=== PATIENT | male | born 1945 | race Caucasian/White ===

== ENCOUNTER 2020-01-11 08:38 | Day surgery (SDC) | payer OTHER, BC ==
[2020-01-08 14:20] VITALS: BMI 25.1
[2020-01-11] MEDS ORDERED: MIDAZOLAM HCL 2 MG/2 ML SINGLE DOSE VIAL ONE (11:29)
[2020-01-11] MEDS ORDERED: PROPOFOL 20 ML ONE (11:57)
[2020-01-11] MEDS ORDERED: ONDANSETRON 4 MG/2 ML VIAL ONE (12:11)
[2020-01-11] MEDS ORDERED: LIDOCAINE HCL/PF 2% SDV 5ML VIAL ONE (12:11)
[2020-01-11] MEDS ORDERED: ceFAZolin SODIUM 1 GM VIAL ONE (12:11)
[2020-01-11] MEDS ORDERED: BUPIVACAINE HCL/PF 2.5 MG/ML - 30 ML VIAL IJ ONE (12:46)
[2020-01-11 13:30] VITALS: TEMP 97.5
[2020-01-11] MEDS ORDERED: oxyCODONE HCL 5 MG TABLET PO PRN ×2 (14:15)
[2020-01-11] MEDS ORDERED: PROMETHAZINE HCL 25 MG/1 ML VIAL IVPB PRN (14:15)
[2020-01-11] MEDS ORDERED: ONDANSETRON 4 MG/2 ML VIAL IVPUSH PRN (14:15)
[2020-01-11] MEDS ORDERED: oxyCODONE HCL 5 MG TABLET ONE (14:17)
--- NOTE | 2020-01-11 15:26 | OP ---
DATE OF OPERATION: 01/11/2020 SURGEON: Ramon Vega MD CENTRAL PROCESSING TECHNICIAN: LOWELL Jorgensen PREOPERATIVE DIAGNOSIS: Left triceps tear. POSTOPERATIVE DIAGNOSIS: Left triceps tear. PROCEDURE: Repair of left triceps tendon distal rupture. FINDINGS: 1. Avulsed biceps tendon. 2. Gouty arthropathy. 3. Thickened scar tissue. PROCEDURE: Informed consent was obtained. After the left upper extremity was prepped and draped in sterile fashion, tourniquet was placed on the upper arm and inflated to 250 mmHg. Incision was made from the olecranon 8 cm proximal. The triceps avulsed tendon was identified, scar tissue removed from the distal portion. There were multiple areas of gouty crystals and tophi which were debrided. Careful attention was made to avoid the ulnar nerve. Two suture anchors, Yuriy type, were placed into the bleeding bone bed of the distal olecranon made with multiple holes placed in it. Two suture anchors were placed with No. 2 FiberWire. The interlocking Linn stitch was placed into the triceps tendon and sutured to the bleeding bone bed with the arm extended. Wound was irrigated with copious amounts of irrigation, closed with 2-0 Vicryl and 3-0 Prolene. Sterile dressing was placed. Patient was transferred to the recovery room without complication. The PA listed above was present and assisted at surgery. Their presence was absolutely medically necessary for the completion of the procedure. They helped hold the arthroscopy, pass instruments (and implants when indicated) and the procedure could not have been completed without their assistance. RAMON VEGA M.D. [id number]
[2020-01-11 15:28] VITALS: BP 131/74; PULSE 81
== END 2020-01-11 14:45 | disposition home or self-care (01) ==
LOC: FASU 08:38
PROVIDERS: ATTEND Orthopaedic Surgery
PROC: 0LM40ZZ Reattachment of Left Upper Arm Tendon, Open Approach (ICD-10-PCS; principal; 2020-01-11 12:15)
DX: S46.312A Strain of muscle, fascia and tendon of triceps, left arm, initial encounter (principal); X58.XXXA Exposure to other specified factors, initial encounter; Y93.9 Activity, unspecified; Y92.9 Unspecified place or not applicable; M10.9 Gout, unspecified; L90.5 Scar conditions and fibrosis of skin
CPT/HCPCS: 82962; 94760

== ENCOUNTER 2020-02-01 07:53 | Day surgery (SDC) | payer OTHER, BC ==
[2020-01-31 12:23] VITALS: BMI 25.1
[2020-02-01] MEDS ORDERED: PROPOFOL 20 ML ONE ×2 (08:15→09:10)
[2020-02-01] MEDS ORDERED: MIDAZOLAM HCL 2 MG/2 ML SINGLE DOSE VIAL ONE (08:15)
[2020-02-01] MEDS ORDERED: SODIUM CHLORIDE 0.9% P/F 10 ML VIAL IJ ONE (08:22)
[2020-02-01] MEDS ORDERED: BUPIVACAINE HCL/PF 2.5 MG/ML - 30 ML VIAL IJ ONE (08:25)
[2020-02-01] MEDS ORDERED: ceFAZolin SODIUM 1 GM VIAL ONE (09:04)
[2020-02-01] MEDS ORDERED: ceFAZolin SODIUM 1 GM VIAL IVPB ONE (09:06)
[2020-02-01] MEDS ORDERED: BACITRACIN 50,000 UNITS VIAL TP ONE (09:11)
[2020-02-01] MEDS ORDERED: ONDANSETRON 4 MG/2 ML VIAL ONE (09:16)
[2020-02-01] MEDS ORDERED: oxyCODONE HCL 5 MG TABLET PO PRN (09:40)
[2020-02-01] MEDS ORDERED: ONDANSETRON 4 MG/2 ML VIAL IVPUSH PRN (09:40)
[2020-02-01] MEDS ORDERED: KETOROLAC TROMETHAMINE 30 MG/1 ML VIAL ONE (09:43)
[2020-02-01] MEDS ORDERED: KETOROLAC TROMETHAMINE 30 MG/1 ML VIAL IVPUSH ONE (09:43)
[2020-02-01] MEDS ORDERED: LACTATED RINGERS SOLUTION 1,000 ML IV SCH (09:45)
[2020-02-01 11:34] VITALS: TEMP 97.6
[2020-02-01 11:43] VITALS: BP 127/73; PULSE 60
--- NOTE | 2020-02-01 20:53 | OP ---
DATE OF OPERATION: 02/01/2020 SURGEON: Azul Vega MD. LIFE AGENT: LOWELL Jorgensen. PREOPERATIVE DIAGNOSIS: Left elbow olecranon bursitis infection. POSTOPERATIVE DIAGNOSIS: Left elbow olecranon bursitis infection. PROCEDURE: Irrigation and debridement left elbow. FINDINGS: Thickened exudate with site of previous incision and drainage procedure. DESCRIPTION OF PROCEDURE: The patient was taken to the operating room where the left upper extremity was prepped and draped in sterile fashion. Tourniquet was placed on the upper arm but not inflated. Previous incision and drainage performed in the office, the edges of the skin were debrided, and necrotic tissue essentially was debrided as well. The site of the triceps repair to the olecranon was found to be intact. Six liters of antibiotic irrigation were used throughout. Prior to the start, a culture was taken. After copious amounts of irrigation, the wound was then packed with 1/4-inch iodoform. Alternating mattress of simple sutures placed along the skin, a 6-cm incision, closing it. Sterile dressing was placed and patient transferred to recovery without complication. AZUL VEGA M.D. [id number]
== END 2020-02-01 11:25 | disposition home or self-care (01) ==
LOC: FASU 07:53
PROVIDERS: ATTEND Orthopaedic Surgery
PROC: 0R9M0ZZ Drainage of Left Elbow Joint, Open Approach (ICD-10-PCS; principal; 2020-02-01 09:30)
DX: M70.22 Olecranon bursitis, left elbow (principal); Y93.9 Activity, unspecified
CPT/HCPCS: 82962; 87070; 87205; 94760

== ENCOUNTER 2020-08-01 05:50 | Day surgery (SDC) | payer OTHER, BC ==
[2020-07-29 13:33] VITALS: BMI 24.5
[2020-08-01] MEDS ORDERED: MIDAZOLAM HCL 2 MG/2 ML SINGLE DOSE VIAL ONE (06:44)
[2020-08-01] MEDS ORDERED: ROPIVACAINE HCL 0.5% 30ML VIAL ONE (06:45)
[2020-08-01] MEDS ORDERED: EPINEPHrine 1:1,000 1 MG/1 ML - 30ML VIAL (INJECTION) ONE (07:08)
[2020-08-01] MEDS ORDERED: LIDOCAINE HCL/PF 2% SDV 5ML VIAL ONE (07:22)
[2020-08-01] MEDS ORDERED: PROPOFOL 20 ML ONE ×3 (07:22→08:03)
[2020-08-01] MEDS ORDERED: ceFAZolin SODIUM 1 GM VIAL ONE (07:22)
[2020-08-01] MEDS ORDERED: PHENYLEPHRINE HCL 10 MG/1 ML SINGLE DOSE VIAL ONE (07:22)
[2020-08-01] MEDS ORDERED: ePHEDrine SULFATE 50 MG/1 ML AMPULE ONE (07:22)
[2020-08-01] MEDS ORDERED: ONDANSETRON 4 MG/2 ML VIAL ONE (08:00)
[2020-08-01] MEDS ORDERED: ONDANSETRON 4 MG/2 ML VIAL IVPUSH PRN (08:03)
[2020-08-01] MEDS ORDERED: oxyCODONE HCL 5 MG TABLET PO PRN ×2 (08:03)
[2020-08-01] MEDS ORDERED: LACTATED RINGERS SOLUTION 1,000 ML IV SCH (08:15)
[2020-08-01 09:20] VITALS: TEMP 97.6
[2020-08-01 10:33] VITALS: BP 148/71; PULSE 71
--- NOTE | 2020-08-01 12:04 | OP ---
DATE OF OPERATION: 08/01/2020 PREOPERATIVE DIAGNOSES: 1. Right shoulder rotator cuff tear. 2. Right shoulder impingement syndrome. 3. Right shoulder adhesive capsulitis. 4. Right shoulder acromioclavicular . 5. Right shoulder superior labral, anterior, posterior synovitis. POSTOPERATIVE DIAGNOSES: 1. Right shoulder rotator cuff tear. 2. Right shoulder impingement syndrome. 3. Right shoulder adhesive capsulitis. 4. Right shoulder acromioclavicular . 5. Right shoulder superior labral, anterior, posterior synovitis. PROCEDURE: 1. Right shoulder arthroscopy with arthroscopic rotator cuff repair, CPT code 70575. 2. Right shoulder arthroscopy with lysis and resection of adhesions, CPT code 40934. 3. Right shoulder arthroscopy with subacromial decompression, CPT code 94637. 4. Right shoulder arthroscopy with resection of clavicle, acromioclavicular joint. CPT code 82614. 5. Arthroscopy, debridement, CPT code 13823 SURGEON: Dr. Azul Vega CHAIN BUILDER: LOWELL Jorgensen FINDINGS: 1. Extensive tearing of the biceps tendon with dislocation anteriorly. 2. Large partial subscapularis tear with avulsion of the superior surface. 3. Diffuse grade 2-4 cartilage injury, glenoid and humerus, with 50% grade 4 changes glenoid and humerus. 4. Multiple loose bodies. 5. Full-thickness supraspinatus, infraspinatus, rotator cuff tear. 6. Type III acromion with anterior spurring. 7. Thickened scar tissue of subacromial space with calcifications, extensive scarring anterior and laterally. 8. Posterior labral fraying. REPAIR TYPE: Three mattress sutures placed into the supraspinatus and secured to a bleeding bone bed using 2 separate anchors. Two separate [id number] sutures were then placed, one going from posterior to anterior and one going from medial to lateral, securing and reinforcing the supraspinatus rotator cuff repair. Biceps tendon had multiple tears with dislocations, and this was debrided, removing it from the joint portion. PROCEDURE: Informed consent was obtained. The patient was taken to the operating room, where the upper extremity was prepped and draped in a sterile fashion. The shoulder was manipulated for a full range of motion. A posterior incision portal was made and directed to the glenohumeral joint. Under direct visualization, an anterior incision and portal was made. Extensive synovitis, as well as chondral injuries throughout the glenohumeral joint were debrided and removed. Any identified labral injuries, including the superior labral tear, anterior and posterior, and anterior labrum torn portions, were removed as well. The rotator cuff was visualized and noted to have a full-thickness tear. The edges were debrided. The posterior incision portal was redirected to the subacromial space where a lateral incision portal was made. Excessive and thickened scar tissue noted throughout the subacromial space, including bursal and scar tissue, were removed. The type 2 acromion was converted into a flattened type 1 using a bur for subacromial decompression. The distal inferior spur at the distal clavicle was also debrided with the use of an accessory portal in the acromioclavicular joint. The edges of the rotator cuff were identified. Sutures were placed into the rotator cuff and secured using anchors through the greater tuberosity. Prior to securing, a bleeding bed was made using a small bur, creating a bleeding surface of the rotator cuff insertion. The shoulder was then drained, a single suture was placed in all portals, a sterile dressing was placed and the patient was transferred to the recovery room without complication. The PA listed above was present and assisted at surgery. Their presence was absolutely medically necessary for the completion of the procedure. They helped hold the arthroscopy, pass instruments (and implants when indicated) and the procedure could not have been completed without their assistance. AZUL VEGA M.D. [id number]
--- NOTE | 2020-08-06 14:50 | PATH ---
Surgical Pathology Report Patient Name: MEHUL KOHLI Med. Rec. #: [id number] /Age/Gender: 1945 (Age: 74) / M Account: [id number] Location: [facility] Taken: 08/01/2020 Received: 08/01/2020 Reported: 08/06/2020 Physicians: Ramon Nunez M.D. Specimen(s) Received RIGHT SHOULDER SHAVINGS Clinical History Right rotator cuff tear Final Diagnosis RIGHT SHOULDER SHAVINGS: SYNOVIAL TISSUE WITH FOCAL OLD HEMORRHAGE, CHRONIC INFLAMMATION, AND REACTIVE CHANGE CARTILAGE WITH CHONDROCALCINOSIS. Electronically Signed Melany Simpson M.D. Gross Description Received in formalin, labeled "shavings right shoulder," is a 4.6 x 4.2 x 0.3 cm. aggregate of hodgson-yellow soft tissue fragments. A title insurance sales representative portion is submitted in one cassette. /08/05/2020 [facility]08/05/2020
== END 2020-08-01 10:15 | disposition home or self-care (01) ==
LOC: FASU 05:50
PROVIDERS: ATTEND Orthopaedic Surgery
PROC: 0RNJ4ZZ Release Right Shoulder Joint, Percutaneous Endoscopic Approach (ICD-10-PCS; 2020-08-01)
PROC: 0RBJ4ZZ Excision of Right Shoulder Joint, Percutaneous Endoscopic Approach (ICD-10-PCS; 2020-08-01)
PROC: 0PB94ZZ Excision of Right Clavicle, Percutaneous Endoscopic Approach (ICD-10-PCS; 2020-08-01)
PROC: 0LQ14ZZ Repair Right Shoulder Tendon, Percutaneous Endoscopic Approach (ICD-10-PCS; principal; 2020-08-01 08:08)
DX: M75.111 Incomplete rotator cuff tear or rupture of right shoulder, not specified as traumatic (principal); M75.41 Impingement syndrome of right shoulder; M75.01 Adhesive capsulitis of right shoulder; M65.811 Other synovitis and tenosynovitis, right shoulder
CPT/HCPCS: 82962; 88304-TC

== ENCOUNTER 2020-12-12 08:13 | Day surgery (SDC) | payer OTHER, BC ==
[2020-12-09 13:38] VITALS: BMI 23.7
[2020-12-12] MEDS ORDERED: PROPOFOL 20 ML ONE (10:55)
[2020-12-12] MEDS ORDERED: LIDOCAINE HCL/PF 2% SDV 5ML VIAL ONE ×2 (10:57→11:29)
[2020-12-12] MEDS ORDERED: LIDOCAINE HCL 2% JELLY (5 ML/TUBE) ONE (10:57)
[2020-12-12] MEDS ORDERED: KETOROLAC TROMETHAMINE 30 MG/1 ML VIAL ONE (11:29)
[2020-12-12] MEDS ORDERED: EPHEDRINE SULFATE/0.9% NACL/PF 50 MG/10 ML SYRINGE NR ONE (11:29)
[2020-12-12] MEDS ORDERED: ceFAZolin SODIUM 1 GM VIAL ONE (11:29)
[2020-12-12] MEDS ORDERED: DEXAMETHASONE SOD PHOSPHATE 4 MG/1 ML VIAL ONE (11:29)
[2020-12-12] MEDS ORDERED: ONDANSETRON 4 MG/2 ML VIAL ONE (11:29)
[2020-12-12] MEDS ORDERED: CLINDAMYCIN PHOSPHATE 600 MG/4 ML VIAL ONE (11:40)
[2020-12-12] MEDS ORDERED: VANCOMYCIN 1,000 MG VIAL (RESTRICTED TO ID ONLY) ONE (11:51)
[2020-12-12] MEDS ORDERED: VANCOMYCIN 1,000 MG VIAL (RESTRICTED TO ID ONLY) IVPB ONE (12:08)
[2020-12-12] MEDS ORDERED: BUPIVACAINE HCL/PF 0.5% (5MG/ML) 10 ML VIAL IJ ONE (12:10)
[2020-12-12] MEDS ORDERED: oxyCODONE HCL 5 MG TABLET PO PRN (12:24)
[2020-12-12] MEDS ORDERED: ONDANSETRON 4 MG/2 ML VIAL IVPUSH PRN (12:24)
[2020-12-12 12:36] VITALS: TEMP 97.7
[2020-12-12 13:20] VITALS: PULSE 77
[2020-12-12 14:06] VITALS: BP 138/76
== END 2020-12-12 14:00 | disposition home or self-care (01) ==
LOC: FASU 08:13
PROVIDERS: ATTEND Orthopaedic Surgery
PROC: 0MB40ZZ Excision of Left Elbow Bursa and Ligament, Open Approach (ICD-10-PCS; principal; 2020-12-12 11:43)
DX: M71.122 Other infective bursitis, left elbow (principal)
CPT/HCPCS: 87070; 87077; 87205; 88304-TC; 94760